=== PATIENT | female | born 1965 | race African-American/Black ===

== ENCOUNTER 2020-10-18 08:15 | Outpatient (CLI) | payer BC | END 2020-10-18 08:16 | disposition home or self-care (01) | LOC: CSHMAMMO 08:15 | PROVIDERS: ATTEND Internal Medicine | DX: Z12.31 Encounter for screening mammogram for malignant neoplasm of breast (principal); Z78.0 Asymptomatic menopausal state | CPT/HCPCS: 77063; 77067; 77080 ==

== ENCOUNTER 2021-10-19 08:38 | Outpatient (CLI) | payer BC | END 2021-10-19 08:39 | disposition home or self-care (01) | LOC: CSHMAMMO 08:38 | PROVIDERS: ATTEND Internal Medicine | DX: Z12.31 Encounter for screening mammogram for malignant neoplasm of breast (principal); Z80.3 Family history of malignant neoplasm of breast | CPT/HCPCS: 77063; 77067 ==

== ENCOUNTER 2021-11-01 07:34 | Outpatient (CLI) | payer BC | END 2021-11-01 07:35 | disposition home or self-care (01) | LOC: CSHULT 07:34 | PROVIDERS: ATTEND Internal Medicine | DX: Z13.6 Encounter for screening for cardiovascular disorders (principal); E78.00 Pure hypercholesterolemia, unspecified | CPT/HCPCS: 75571; 76775 ==